=== PATIENT | male | born 1955 | race Caucasian/White ===

== ENCOUNTER 2017-05-20 10:14 | Emergency (ER) | payer OTHER ==
[~2017-05-20] VITALS: Ht 167.6 cm; Wt 75.5 kg
[2017-05-20 10:18] VITALS: Ht 167.6 cm; Wt 75.5 kg
[2017-05-20] MEDS ORDERED: HYDR25SU23 PR (11:13)
--- NOTE | 2017-05-20 13:53 | ERD ---
ER Documentation Chief Complaint Date/Time DATE: 05/20/17 TIME: 13:48 Chief Complaint Complains of rectal hx of hemrrhoids HPI 62-year-old male patient with a past medical history of hemorrhoids presents to the ED complaining of hemorrhoid pain that started 4 days ago. States that he has had hemorrhoids for about 15-18 years. States that it is painful when he sits and when he has a bowel movement. Reports that he has slight blood noted when he wipes his anus. Denies any anal sex. Denies any nausea, vomiting, abdominal pain, hematemesis, hemoptysis, melena, fever. Denies any scrotal pain , dysuria, urgency. ROS All systems reviewed and are negative except as per history of present illness. Medications Home Meds Active Scripts Hydrocortisone Acetate (Anusol-Hc) 25 Mg Supp.rect, 1 SUPP NM BID Y for HEMORROID PAIN/ITCHING, #12 SUPP.RECT Prov:PILY ROBERSON PA-C 05/20/17 Allergies Allergies: Coded Allergies: No Known Allergy (Unverified , 05/20/17) PMhx/Soc Medical and Surgical Hx: pt denies Surgical Hx Hx Alcohol Use: No Hx Substance Use: No Hx Tobacco Use: No Physical Exam Vitals Vital Signs Date Time Temp Pulse Resp B/P Pulse Ox O2 Delivery O2 Flow Rate FiO2 05/20/17 10:18 97.6 59 20 145/86 98 Physical Exam Const: Wtl-wvs-hchoewehb, well-nourished. In no acute distress. Head: Atraumatic, normocephalic Eyes: Normal Conjunctiva without injection. No purulent discharge. ENT: Normal external ear, nose. Moist oropharynx without tonsillar exudates. Non -erythematous pharynx. Uvula midline. No drooling. No trismus. Neck: No cervical midline tenderness. Full range of motion. No meningismus. No cervical lymphadenopathy. No JVD. Resp: Clear to auscultation bilaterally. No wheezing, rhonchi, rales, or crackles. No accessory muscle use. No retractions. Cardio: Regular rate and rhythm. No murmurs, rubs or gallops. Abd: Soft, nontender, non distended. Normal bowel sounds. No palpable masses. No rebound tenderness. No guarding. Negative McBurney's point. Negative psoas sign. Negative obturator sign. Five 1 x 2 cm external hemorrhoids noted around the anus with tenderness to palpation. Slight bleeding from broken capillaries noted. No fluctuance or induration. No erythema or edema. Non-thrombosed. Skin: No petechiae or rashes Back: No midline tenderness. No CVA tenderness. Ext: No cyanosis, or edema. Neur: Awake and alert. Normal gait. Normal coordination. Psych: Normal Mood and Affect Procedures/MDM 62-year-old male patient with a past medical history of hemorrhoids presents the ED complaining of hemorrhoid pain that started 4 days ago. Patient is afebrile and nontoxic-appearing. Patient has normal vital signs. On physical exam patient appears to have 5 external hemorrhoids. Non-thrombosed. Sitz bath with Epsom salts was recommended. Patient will be given prescription for Anusol. Patient was strictly instructed to follow-up with his family doctor to obtain a referral to a general surgeon for further care and treatment. There is low suspicion for fissures, perianal or perirectal abscess, deep space infection, acute abdomen, GI bleeding, or other emergent conditions. Discharge medications: Anusol Follow up with primary care physician in 1-2 days. Instructed patient to return to the ED sooner for any worsening symptoms. Patient's questions were answered. Patient understood and agreed with discharge plan. Patient discharged stable. Departure Diagnosis: Primary Impression: Acute hemorrhoid Condition: Stable Patient Instructions: Hemorrhoid Surgery, Hemorrhoids Referrals: CESAR LEMUS M.D. [facility] YOU HAVE RECEIVED A MEDICAL SCREENING EXAM AND THE RESULTS INDICATE THAT YOU DO NOT HAVE A CONDITION THAT REQUIRES URGENT TREATMENT IN THE EMERGENCY DEPARTMENT. FURTHER EVALUATION AND TREATMENT OF YOUR CONDITION CAN WAIT UNTIL YOU ARE SEEN IN YOUR DOCTORS OFFICE WITHIN THE NEXT 1-2 DAYS. IT IS YOUR RESPONSIBILITY TO MAKE AN APPOINTMENT FOR FOLOW-UP CARE. IF YOU HAVE A PRIMARY DOCTOR --you should call your primary doctor and schedule an appointment IF YOU DO NOT HAVE A PRIMARY DOCTOR YOU CAN CALL OUR PHYSICIAN REFERRAL HOTLINE AT IF YOU CAN NOT AFFORD TO SEE A PHYSICIAN YOU CAN CHOSE FROM THE FOLLOWING [facility] [address] [facility]. [facility] [address] [facility] [facility] [facility] [address] [facility] [address] [facility] [address] [facility]. [facility]. [address] [facility]. [facility] YOU HAVE RECEIVED A MEDICAL SCREENING EXAM AND THE RESULTS INDICATE THAT YOU DO NOT HAVE A CONDITION THAT REQUIRES URGENT TREATMENT IN THE EMERGENCY DEPARTMENT. FURTHER EVALUATION AND TREATMENT OF YOUR CONDITION CAN WAIT UNTIL YOU ARE SEEN IN YOUR DOCTORS OFFICE WITHIN THE NEXT 1-2 DAYS. IT IS YOUR RESPONSIBILITY TO MAKE AN APPOINTMENT FOR FOLOW-UP CARE. IF YOU HAVE A PRIMARY DOCTOR --you should call your primary doctor and schedule and appointment IF YOU DO NOT HAVE A PRIMARY DOCTOR YOU CAN CALL OUR PHYSICIAN REFERRAL HOTLINE AT . IF YOU CAN NOT AFFORD TO SEE A PHYSICIAN YOU CAN CHOSE FROM THE FOLLOWING [facility] INSTITUTIONS: [facility] [address] [place] [address] [facility] [address] [place] [address] [facility] [address] [place] [address] [facility] URGENT CARE/SPECIALTIES Additional Instructions: Compra de sales de Epsom y hacer baos de asiento diariamente hasta que obtenga kurt remisin para consultar a un cirujano para evaluacin adicional y tratamiento Llame al doctor ERIKA y rosa kurt ZHANE PARA DENTRO DE 1-2 ALVAREZ.Dgale a la secretaria que nosotros le instruimos hacer esta zhane.Avise o llame si zabala condicin se empeora antes de la zhane. Regresa aqui si peor o no mejor. PILY ROBERSON PA-C May 20, 2017 13:53
== END 2017-05-20 12:55 | disposition home or self-care (01) ==
LOC: FTE 10:14
DX: K64.4 Residual hemorrhoidal skin tags (principal)
CPT/HCPCS: 99283

== ENCOUNTER 2017-10-25 22:29 | Emergency (ER) | END 2017-10-26 02:26 | disposition home or self-care (01) ==

== ENCOUNTER 2017-11-01 08:37 | Emergency (ER) | END 2017-11-01 09:32 | disposition home or self-care (01) ==